=== PATIENT | male | born 1965 | race Caucasian/White ===

== ENCOUNTER 2016-09-11 12:15 | Emergency (ER) | payer MEDICAID ==
[~2016-09-11] VITALS: Ht 180.3 cm; Wt 74.4 kg
[2016-09-11 12:30] VITALS: BP 131/89
== END 2016-09-11 13:23 | disposition home or self-care (01) ==
LOC: ER 12:15
DX: M54.2 Cervicalgia (principal); Z76.0 Encounter for issue of repeat prescription

== ENCOUNTER 2020-10-27 20:28 | Emergency (ER) | payer MEDICAID ==
[~2020-10-27] VITALS: Ht 348 cm; Wt 77.1 kg
[2020-10-27 20:38] VITALS: BP 118/74
[2020-10-27] MEDS ORDERED: SODIUM CHLORIDE 0.9% 1,000 ML IVB ONE (20:45)
[2020-10-27 21:12] LABS: Basophils # (auto) 0.1 10 ^3/uL (0-0.2); Basophils % (auto) 1.3 % (0.0-2.0); Eosinophils # (auto) 0.1 10 ^3/uL (0-0.8); Eosinophils % (auto) 1.5 % (0.0-7.0); Hematocrit 42.8 % (41.0-53.0); Hemoglobin 15.2 g/dL (13.5-17.5); Lymphocytes # (auto) 1.5 10 ^3/uL (0.4-5.4); Lymphocytes % (auto) 19.7 % (10.0-50.0); Mean Corpuscular Hemoglobin 33.6 pg (28.0-32.0); Mean Corpuscular Hgb Conc. 35.5 g/dL (32.0-36.0); Mean Corpuscular Volume 94.7 fL (80.0-100.0); Monocytes # (auto) 0.4 10 ^3/uL (0-1.3); Monocytes % (auto) 5.6 % (0.0-12.0); Neutrophils # (auto) 5.7 10 ^3/uL (1.6-8.6); Neutrophils % (auto) 71.9 % (37.0-80.0); Nucleated Red Blood Cells % 0.1 %; Red Blood Cells 4.52 10^6/uL (4.5-5.90); Red Cell Distribution Width 13.5 % (11.8-14.3); White Blood Cell 7.9 10^3/uL (4.4-10.8)
[2020-10-27 21:27] LABS: Albumin 3.6 g/dL (3.4-5.0); Anion Gap 10 (5-15); Blood Urea Nitrogen 14 mg/dL (7-18); Carbon Dioxide 24 mmol/L (21-32); Chloride 106 mmol/L (98-107); GFR African American 100 mL/min; GFR Non-African American 82 mL/min; Glucose 107 mg/dL (74-106); Magnesium 2.3 mg/dL (1.6-2.6); Potassium 3.6 mmol/L (3.5-5.1); Sodium 140 mmol/L (136-145)
[2020-10-27 21:35] LABS: Alanine Aminotransferase 35 U/L (16-61); Alkaline Phosphatase 64 U/L (45-117); Aspartate Aminotransferase 27 U/L (15-37); Bilirubin, Total 0.3 mg/dL (0.2-1.0)
[2020-10-27] MEDS: ASPirin 81 mg TAB PO ONE (21:43)
[2020-10-28 00:22] LABS: Amphetamine Screen, Urine NEGATIVE (NEGATIVE); Barbiturate Scree,Urine NEGATIVE (NEGATIVE); Benzodiazephine Screen, Urine POSITIVE (NEGATIVE); Cannabinoid Screen, Urine POSITIVE (NEGATIVE); Cocaine Screen, Urine NEGATIVE (NEGATIVE); Opiate Scree,Urine NEGATIVE (NEGATIVE); Phencyclidine Screen, Urine NEGATIVE (NEGATIVE)
[2020-10-28 00:23] LABS: Urine Bacteria NONE SEEN /hpf (None Seen); Urine Blood Negative /uL (Negative); Urine Mucus FEW (None Seen); Urine Specific Gravity 1.023 (1.001-1.035); Urine WBC <1 /hpf (0 - 3)
== END 2020-10-28 02:05 | disposition left against medical advice (07) ==
LOC: EDBD 20:28 → ER 20:31
DX: R42 Dizziness and giddiness (principal); F17.290 Nicotine dependence, other tobacco product, uncomplicated; Z53.29 Procedure and treatment not carried out because of patient's decision for other reasons
CPT/HCPCS: 36415; 71045; 80053; 80307; 81001; 83735; 83880; 84484; 85025; 93005; 96360; 99285; J7030

== ENCOUNTER 2023-12-09 22:31 | Emergency (ER) | payer MEDICAID ==
[~2023-12-09] VITALS: Ht 180.3 cm; Wt 75.2 kg
[2023-12-09] MEDS: ONDANSETRON HCL 4 MG/2 ML VIAL IV ONE (23:00)
[2023-12-09] MEDS: MORPHINE SULFATE 4 MG/ML SYR/VIAL IV ONE (23:00)
[2023-12-09] MEDS: SODIUM CHLORIDE 0.9% 1,000 ML IV ONE (23:00)
[2023-12-09 23:34] LABS: Alanine Aminotransferase 37 U/L (7-40); Albumin 5.1 g/dL (3.2-4.8); Alkaline Phosphatase 90 U/L (46-116); Anion Gap 12 (5-15); Aspartate Aminotransferase 27 U/L (13-40); BUN/Creatinine Ratio 14.8 (10.0-20.0); Blood Urea Nitrogen 17 mg/dL (9-23); Calcium 10.2 mg/dL (8.7-10.4); Carbon Dioxide 18 mmol/L (20-30); Chloride 104 mmol/L (98-107); Glucose 132 mg/dL (74-106); Potassium 4.2 mmol/L (3.5-5.1); Sodium 134 mmol/L (136-145)
[2023-12-09 23:35] LABS: Bilirubin, Total 1.1 mg/dL (0.2-1.0)
[2023-12-10 00:02] LABS: Basophils # (auto) 0.1 10 ^3/uL (0-0.2); Eosinophils # (auto) 0 10 ^3/uL (0-0.8); Eosinophils % (auto) 0.1 % (0.0-7.0); Monocytes # (auto) 1.4 10 ^3/uL (0-1.3); Neutrophils # (auto) 14.2 10 ^3/uL (1.6-8.6); Nucleated Red Blood Cells % 0.1 %; White Blood Cell 16.7 10^3/uL (4.4-10.8)
[2023-12-10 00:03] LABS: Basophils % (auto) 0.6 % (0.0-2.0); Hematocrit 51.6 % (41.0-53.0); Hemoglobin 18.4 g/dL (13.5-17.5); Lymphocytes % (auto) 5.8 % (10.0-50.0); Mean Corpuscular Hemoglobin 33.6 pg (28.0-32.0); Mean Corpuscular Hgb Conc. 35.7 g/dL (32.0-36.0); Mean Corpuscular Volume 93.9 fL (80.0-100.0); Monocytes % (auto) 8.4 % (0.0-12.0); Neutrophils % (auto) 85.1 % (37.0-80.0); Platelet Count (auto) 306 10^3/uL (140-450); Red Cell Distribution Width 13.3 % (11.8-14.3)
[2023-12-10] MEDS: IOHEXOL 300 MG/ML 100ML BOTTLE IJ ONE (00:22)
[2023-12-10 00:40] VITALS: PULSE 93; RESP 21; O2SAT 94
[2023-12-10 00:45] LABS: Platelet Estimate Adequate
[2023-12-10 00:47] LABS: Stomatocytes Few
[2023-12-10] MEDS: MORPHINE SULFATE 4 MG/ML SYR/VIAL IV ONE ×2 (05:06→08:11)
[2023-12-10] MEDS: ONDANSETRON HCL 4 MG/2 ML VIAL IV ONE ×2 (05:07→08:09)
[2023-12-10 07:42] VITALS: TEMP 98; O2SAT 94
[2023-12-10 08:11] VITALS: BP 140/105; PULSE 90; RESP 16
== END 2023-12-10 08:03 | disposition short-term general hospital (02) ==
LOC: ER 22:31
DX: K56.609 Unspecified intestinal obstruction, unspecified as to partial versus complete obstruction (principal); R42 Dizziness and giddiness
CPT/HCPCS: 36415; 71045; 74177; 80053; 83690; 85025; 96361; 96374; 96375; 96376; 99285; J2270; J2405; J7030; Q9967